=== PATIENT | male | born 1970 | race Two or more races ===

== ENCOUNTER 2025-03-15 08:15 | Day surgery (SDC) | payer OTHER, SELFPAY ==
[2025-03-14 13:56] VITALS: BMI 32.0
[2025-03-15] VITALS (12 sets, daily range): BP systolic 111–141; BP diastolic 60–75; PULSE 63–89; RESP 12–25; TEMP 36.2–36.6; O2SAT 94–100; BMI 32.0
[2025-03-15] MEDS: BENZOCAINE 20% (Hurricaine) SPRAY 1 DOSE TOP (10:39)
[2025-03-15] MEDS: DiphenhydrAMINE INJ 50 MG/ML VIAL 25 MG IVP (10:39)
[2025-03-15] MEDS: SODIUM CHLORIDE 0.9% 500 ML 500 ML 20 ML IV (10:39)
[2025-03-15] MEDS: fentaNYL CIT INJ 50 mCg/ML AMP 2ML (ASD USE ONLY) IVP (10:57)
[2025-03-15] MEDS: MIDAZOLAM INJ 1 MG/ML VIAL 2 ML (ASD USE ONLY) 2 MG IVP (10:57)
== END 2025-03-15 11:55 | disposition home or self-care (01) ==
PROVIDERS: PCP Family Medicine; Referring Provider Specialist; Visit Provider Specialist
PROC: 0DBE8ZX Excision of Large Intestine, Via Natural or Artificial Opening Endoscopic, Diagnostic (ICD-10-PCS; CPT 45380; principal; 2025-03-15 09:30)
PROC: (CPT 43239; 2025-03-15 09:30)
DX: K57.32 Diverticulitis of large intestine without perforation or abscess without bleeding (principal); D62 Acute posthemorrhagic anemia; K64.9 Unspecified hemorrhoids
CPT/HCPCS: 45378; J1200; J2250; J3010; J7999; A9270